=== PATIENT | female | born 1965 | race Two or more races ===

== ENCOUNTER 2023-03-08 14:16 | Emergency (ER) | payer MEDICAID ==
[~2023-03-08] VITALS: Ht 154.9 cm; Wt 95.3 kg
[2023-03-08 14:59] VITALS: BP 136/84
[2023-03-08] MEDS ORDERED: KETOROLAC TROMETH 60MG/2ML VIAL IM ONE (16:00)
[2023-03-08] MEDS ORDERED: IBUP-1456 PO (16:04)
[2023-03-08] MEDS ORDERED: METH-1182 PO (16:04)
== END 2023-03-08 16:15 | disposition home or self-care (01) ==
LOC: ER 14:16
DX: S63.501A Unspecified sprain of right wrist, initial encounter (principal); M54.42 Lumbago with sciatica, left side; E78.5 Hyperlipidemia, unspecified; I10 Essential (primary) hypertension; Z88.6 Allergy status to analgesic agent; W06.XXXA Fall from bed, initial encounter; Y93.89 Activity, other specified; Y92.89 Other specified places as the place of occurrence of the external cause; Y99.8 Other external cause status
CPT/HCPCS: 72100; 73110; 96372; 99284; J1885

== ENCOUNTER 2024-03-03 03:33 | Emergency (ER) | payer MEDICAID ==
[~2024-03-03] VITALS: Ht 154.9 cm; Wt 103.2 kg
[~2024-03-03 03:33] MED LIST: IBUP-1456 PO; METH-1182 PO
[2024-03-03 03:45] VITALS: BP 149/84; PULSE 108; RESP 18; O2SAT 96
[2024-03-03] MEDS ORDERED: DOXY-448 PO (04:48)
[2024-03-03] MEDS ORDERED: ACET500T58 PO (04:48)
[2024-03-03] MEDS ORDERED: PRED20TA2 PO (04:48)
== END 2024-03-03 05:00 | disposition home or self-care (01) ==
LOC: ER 03:35
DX: J20.9 Acute bronchitis, unspecified (principal); E78.5 Hyperlipidemia, unspecified; I10 Essential (primary) hypertension; Z90.49 Acquired absence of other specified parts of digestive tract

== ENCOUNTER 2024-05-20 08:27 | Emergency (ER) | payer MEDICAID ==
[~2024-05-20] VITALS: Ht 154.9 cm; Wt 100.7 kg
[~2024-05-20 08:27] MED LIST changes: +ACET500T58 PO; +DOXY100C79 PO; +PRED20TA2 PO
[2024-05-20 09:25] LABS: Basophils # (auto) 0 10 ^3/uL (0-0.2); Basophils % (auto) 0.2 % (0.0-2.0); Eosinophils # (auto) 0.1 10 ^3/uL (0-0.8); Hematocrit 44.3 % (36.0-46.0); Hemoglobin 15.4 g/dL (12.2-16.2); Lymphocytes # (auto) 0.7 10 ^3/uL (0.4-5.4); Lymphocytes % (auto) 6.5 % (10.0-50.0); Mean Corpuscular Hemoglobin 29.4 pg (28.0-32.0); Mean Corpuscular Hgb Conc. 34.7 g/dL (32.0-36.0); Mean Corpuscular Volume 84.9 fL (80.0-100.0); Monocytes # (auto) 0.4 10 ^3/uL (0-1.3); Monocytes % (auto) 3.1 % (0.0-12.0); Neutrophils # (auto) 10.2 10 ^3/uL (1.6-8.6); Neutrophils % (auto) 89.2 % (37.0-80.0); Platelet Count (auto) 350 10^3/uL (140-450); Red Blood Cells 5.23 10^6/uL (4.0-5.20); Red Cell Distribution Width 14.4 % (11.8-14.3); White Blood Cell 11.5 10^3/uL (4.4-10.8)
[2024-05-20 09:47] LABS: Alanine Aminotransferase 23 U/L (7-40); Alkaline Phosphatase 134 U/L (46-116); Anion Gap 10 (5-15); Aspartate Aminotransferase 18 U/L (13-40); BUN/Creatinine Ratio 14.7 (10.0-20.0); Bilirubin, Total 0.4 mg/dL (0.2-1.0); Blood Urea Nitrogen 11 mg/dL (9-23); Carbon Dioxide 22 mmol/L (20-30); Chloride 107 mmol/L (98-107); Glucose 127 mg/dL (74-106); Potassium 3.9 mmol/L (3.5-5.1); Sodium 139 mmol/L (136-145); Total Protein 8.4 g/dL (5.7-8.2)
[2024-05-20 10:07] VITALS: BP 156/89; PULSE 93; RESP 16; TEMP 99.4; O2SAT 98
[2024-05-20 10:09] LABS: Lipase 27 U/L (12-53)
[2024-05-20 10:18] LABS: Urine Bacteria None Seen /hpf (None Seen)
[2024-05-20 10:51] LABS: Urine Blood 1+ /uL (Negative); Urine Clarity Clear (Clear); Urine Color Yellow (Yellow); Urine Mucus FEW (None Seen); Urine Protein, UAD TRACE (Negative); Urine Specific Gravity 1.029 (1.001-1.035); Urine Urobilinogen Normal (Negative); Urine WBC 1 /hpf (0 - 5); Urine pH 5.5 (5.0-9.0)
[2024-05-20] MEDS ORDERED: DICY10CA PO (11:35)
[2024-05-20] MEDS ORDERED: ACET-1304 PO (11:35)
[2024-05-20] MEDS ORDERED: LOPE2TAB99 PO (11:35)
[2024-05-20] MEDS ORDERED: ONDANSETRON HCL 4 MG/2 ML VIAL IV ONE (11:45)
[2024-05-20] MEDS ORDERED: SODIUM CHLORIDE 0.9% 1,000 ML IV ONE (11:45)
[2024-05-20] MEDS ORDERED: MORPHINE SULFATE 4 MG/ML SYR/VIAL IV ONE (11:45)
== END 2024-05-20 11:44 | disposition home or self-care (01) ==
LOC: ER 08:27
DX: R10.9 Unspecified abdominal pain (principal); R19.7 Diarrhea, unspecified; R55 Syncope and collapse; I10 Essential (primary) hypertension; E78.5 Hyperlipidemia, unspecified; Z98.890 Other specified postprocedural states; Z88.8 Allergy status to other drugs, medicaments and biological substances; Z79.899 Other long term (current) drug therapy
CPT/HCPCS: 36415; 74176; 80053; 81001; 83690; 85025

== ENCOUNTER 2024-09-10 13:06 | Emergency (ER) | payer MEDICAID ==
[~2024-09-10] VITALS: Ht 154.9 cm; Wt 97.0 kg
[~2024-09-10 13:06] MED LIST changes: +ACET-1304 PO; +DICY10CA PO; +LOPE2TAB99 PO
[2024-09-10 13:52] VITALS: BP 133/82; PULSE 91; RESP 16; O2SAT 95
--- NOTE | 2024-09-10 14:08 | DVH ---
INDICATION: PAIN, NO INJURY COMPARISON: None TECHNIQUE: 3 views of the cervical spine were obtained. FINDINGS: Reversal of the cervical spine curvature. The predental space is normal. Severe multilevel degenerative disc disease of the cervical spine. No acute fracture, vertebral compression deformity or aggressive osseous lesions. The imaged lung apices are unremarkable. IMPRESSION: No acute fracture. Severe multilevel degenerative disc disease of the cervical spine.
--- NOTE | 2024-09-10 16:06 | ED.PDOC ---
Back pain HPI HPI Comments A 59 YEAR OLD FEMALE PRESENTS TO THE ED WITH CHIEF COMPLAINT OF NECK PAIN. PATIENT REPORTS THAT SHE HAS BEEN EXPERIENCING NECK PAIN THAT RADIATES TO HER LEFT SHOULDER FOR THE PAST 4 DAYS. PATIENT RELAYS THAT SHE HAS HISTORY OF CHRONIC NECK PAIN IN THE PAST. PATIENT DENIES ANY BACK PAIN, HEADACHE, CHEST PAIN, NUMBNESS, OR WEAKNESS. Chief Complaint: Neck Pain Time Seen by MD: 16:01 Primary Care Provider: UNKNOWN Reviewed Notes: Nurses Notes, Medications, Allergies Allergies: Coded Allergies: Naproxen (Verified Allergy, Unknown, 03/08/23) Tramadol (Verified Allergy, Unknown, 03/08/23) Home Meds Active Scripts Loperamide Hcl (Imodium A-D) 2 Mg Tab, 2 MG PO Q6HP PRN, #20 TAB prn diarrhea Prov:DEMETRA AWAN MD 05/20/24 Acetaminophen (Tylenol Extra Strength) 500 Mg Tab, 1000 MG PO Q6HP PRN, #30 TAB prn pain or fever Prov:DEMETRA AWAN MD 05/20/24 Dicyclomine Hcl (BENTYL CAPSULE) 10 Mg Cp, 2 CAP PO Q6HP PRN, #30 CAP 11 Refills prn abdominal pain Prov:DEMETRA AWAN MD 05/20/24 Acetaminophen (Acetaminophen) 500 Mg Tab, 500 MG PO Q4HPRN, #30 TAB 0 Refills Prov:LUPILLO GAYLE 03/03/24 Prednisone (Prednisone) 20 Mg Tab, 20 MG PO BID for 5 Days, #10 TAB 0 Refills Prov:LUPILLO GAYLE 03/03/24 Doxycycline (Monohydrate) (Doxycycline) 100 Mg Cap, 100 MG PO BID for 7 Days, #14 CAP 0 Refills Prov:LUPILLO GAYLE 03/03/24 Methocarbamol (Methocarbamol) 750 Mg Tab, 750 MG PO BID, #20 TAB Prov:JAYDA HOPE 03/08/23 Ibuprofen (Ibuprofen) 800 Mg Tab, 1 TAB PO TID, #30 TAB Prov:JAYDA HOPE 03/08/23 Information Source: Patient Mode of Arrival: Ambulatory Timing: Days Duration: Since onset Location of Back pain: (B) Cervical Radiates to: Lateral: Other (LEFT SHOULDER) Severity: Moderate Prehospital treatment: None Quality: Aching Onset: Spontaneous History of: Other (CHRONIC NECK PAIN) Modifying Factors: Nothing Associated signs and symptoms: None Past Medical History PAST MEDICAL HISTORY: High Lipids, HTN Surgical History: Cholecystectomy ACCOUNT DEVELOPMENT MANAGER History: Denies all ACCOUNT DEVELOPMENT MANAGER Hx Family History Family History: Reviewed,noncontributory to illness, Unknown Social History Smoker: Non-Smoker Alcohol: Denies ETOH Use Drugs: Denies Drug Use Lives In: Home Constitutional: denies: chills, diaphoresis, fatigue, fever, malaise, sweats, weakness, others EENTM: denies: blurred vision, double vision, ear bleeding, ear discharge, ear drainage, ear pain, ear ringing, eye pain, eye redness, hearing loss, mouth pain, mouth swelling, nasal discharge, nose bleeding, nose congestion, nose pain, photophobia, tearing, throat pain, throat swelling, voice changes, others Respiratory: denies: cough, hemoptysis, orthopnea, SOB at rest, shortness of breath, SOB with excertion, stridor, wheezing, others Cardiovascular: denies: chest pain, dizzy spells, diaphoresis, Dyspnea on exertion, edema, irregular heart beat, left arm pain, lightheadedness, palpitations, PND, syncope, others Gastrointestinal: denies: abdomen distended, abdominal pain, blood streaked bowels, constipated, diarrhea, dysphagia, difficulty swallowing, hematemesis, melena, nausea, poor appetite, poor fluid intake, rectal bleeding, rectal pain, vomiting, others Genitourinary: denies: abnormal vagina bleeding, burning, dyspareunia, dysuria, flank pain, frequency, hematuria, incontinence, pain, , vagina discharge, urgency, others Neurological: denies: dizziness, fainting, headache, left sided numbness, left sided weakness, numbness, paresthesia, pre-existing deficit, right sided numbness, right sided weakness, seizure, speech problems, tingling, tremors, weakness, others Musculoskeletal: reports: muscle pain, neck pain; denies: back pain, gout, joint pain, joint swelling, muscle stiffness, others Integumetry: denies: bruises, change in color, change in hair/nails, dryness, laceration, lesions, lumps, rash, wounds, others Allergic/Immunocompromised: denies: Difficulty Healing, Frequent Infections, Hives, Itching, others Hematologic/Lymphatic: denies: anemia, blood clots, easy bleeding, easy bruising, swollen glands, others Endocrine: denies: excessive hunger, excessive sweating, excessive thirst, excessive urination, flushing, intolerance to cold, intolerance to heat, unexplained weight gain, unexplained weight loss, others Psychiatric: denies: anxiety, bipolar disorder, depression, hopeless, panic disorder, schizophrenia, sleepless, suicidal, others All Other Systems: Reviewed and Negative Physical Exam General Appearance: No Apparent Distress, Obese HEENT: Normal ENT Inspection, PERRL/EOMI Neck: Full Range of Motion, Normal Inspection, Supple, Tender Lateral (TENDERNESS AND MUSCLE SPASM ON POSTERIOR NECK, NO BONY TENDERNESS, SWELLING AND DEFORMITY. ) Respiratory: Chest Non-Tender, Lungs Clear, No Accessory Muscle Use, No Respiratory Distress, Normal Breath Sounds Cardiovascular: No Edema, No JVD, No Murmur, No Gallop, Normal Peripheral Pulses, Regular Rate/Rhythm Breast Exam: Deferred Gastrointestinal: No Organomegaly, Non Tender, No Pulsatile Mass, Normal Bowel Sounds, Soft Genitalia: Deferred Pelvic: Deferred Rectal: Deferred Extremities: No calf tenderness, Normal capillary refill, Normal inspection, Normal range of motion, Non-tender, No pedal edema Musculoskeletal : Apperance: Normal Neurologic: Alert, cook dessert II-XII nml as Tested, No Motor Deficits, Normal Affect, Normal Mood, No Sensory Deficits Cerebellar Function: Normal Reflexes: Normal Skin: Dry, Normal Color, Warm Peripheral Pulses: 2+ carotid (R), 2+ carotid (L) Lymphatic: No Adenopathy Was a procedure done? Was a procedure done?: No Back Pain Differential Dx Differential Diagnosis: Musculoskeletal Pain, Strain, Other (DDD OF NECK, CERVICAL MUSCLE STRAIN ) X-Ray, Labs, Meds, VS Vital Signs Date Time Temp Pulse Resp B/P (MAP) Pulse Ox O2 Delivery O2 Flow Rate FiO2 09/10/24 13:52 99.4 91 16 133/82 (99) 95 C-SPINE XR: FINDINGS: Reversal of the cervical spine curvature. The predental space is normal. Severe multilevel degenerative disc disease of the cervical spine. No acute fracture, vertebral compression deformity or aggressive osseous lesions. The imaged lung apices are unremarkable. IMPRESSION: No acute fracture. Severe multilevel degenerative disc disease of the cervical spine. X-Ray, Labs, Meds, VS Comment - I reviewed the following notes from patient's past medical encounters: 05/20/24 FOR ABDOMINAL PAIN - The following tests were ordered, and results were reviewed by me: C-SPINE XR - Additional information was gathered from interviewing the following independent Historian: NA - I reviewed and agreed with the following test results read by other provider: C-SPINE XR - I discussed treatments and results with medical personnel. Time of 1ST Reevaluation: 16:05 Reevaluation 1ST: Improved Patient Education/Counseling: Diagnosis, Treatment, Need For Follow Up Family Education/Counseling: Diagnosis, Treatment, Need For Follow Up Medical Screening: No EMC Exist At This Time Departure 1 Departure Time of Disposition: 16:11 Impression: Primary Impression: DDD (degenerative disc disease), cervical Additional Impression: Radiculopathy, cervical Disposition: 01 HOME / SELF CARE / HOMELESS Condition: Stable Additional Instructions: FOLLOW UP WITH PCP WITHIN 2-3 DAYS. e-Prescriptions Methocarbamol (Methocarbamol) 750 Mg Tab 750 MG PO BID, #20 TAB Prov: JAYDA HOPE 09/10/24 Ibuprofen (Ibuprofen) 800 Mg Tab 1 TAB PO TID, #30 TAB Prov: JAYDA HOPE 09/10/24 Discharged With: Self Critical Care Note Critical Care Time?: No Stability Stability form required: No Heart Score Heart Score: Heart Score Response (Comments) Value History N/A 0 EKG N/A 0 Age N/A 0 Risk Factors N/A 0 Troponin N/A 0 Total 0 I personally scribed for JAYDA HOPE ([email or web address]) on 09/10/24 at 16:06. Electronically submitted by Adalid Castillo ([email or web address]). JAYDA HOPE Sep 10, 2024 16:06
== END 2024-09-10 16:13 | disposition home or self-care (01) ==
LOC: ER 13:06
DX: M50.10 Cervical disc disorder with radiculopathy, unspecified cervical region (principal); I10 Essential (primary) hypertension; Z79.1 Long term (current) use of non-steroidal anti-inflammatories (NSAID); Z79.52 Long term (current) use of systemic steroids; Z88.5 Allergy status to narcotic agent; Z88.6 Allergy status to analgesic agent; Z90.49 Acquired absence of other specified parts of digestive tract
CPT/HCPCS: 72040